=== PATIENT | female | born 1985 | race Caucasian/White ===

== ENCOUNTER 2017-10-11 17:41 | Emergency (ER) | payer OTHER ==
[~2017-10-11] VITALS: Ht 165.1 cm; Wt 81.7 kg
[2017-10-11] MEDS ORDERED: BUTALB-ACETAMI1 EAC3 PO (18:53)
== END 2017-10-11 20:13 | disposition home or self-care (01) ==
LOC: ED 17:41
DX: G43.909 Migraine, unspecified, not intractable, without status migrainosus (principal); J45.909 Unspecified asthma, uncomplicated; F17.200 Nicotine dependence, unspecified, uncomplicated; Z88.6 Allergy status to analgesic agent; Z88.8 Allergy status to other drugs, medicaments and biological substances
CPT/HCPCS: 96361; 96374; 96375; 99283; J1100; J1110; J1200; J2765; J7030

== ENCOUNTER 2018-07-30 13:34 | Emergency (ER) | payer OTHER ==
[~2018-07-30] VITALS: Ht 165.1 cm; Wt 79.4 kg
--- OUTSIDE RECORDS SUMMARY | ~2018-07-30 | XMS | Encounter Summary ---
Demographics + + + | Address | [address] [facility] [address] | | | [place] [address] | + + + | Home Phone | | + + + | Preferred Language | Unknown | + + + | Marital Status | | + + + | Mosque Affiliation | 1013 | + + + | Race | Unknown | + + + | Ethnic Group | Unknown | + + + Author + + + | Author | [facility] | | | and [place] | + + + | Organization | [facility] | | | and [place] | + + + | Address | Unknown | + + + | Phone | Unavailable | + + + Support + + + + + | Name | Relationship | Address | Phone | + + + + + | Doroteo Goff | ECON | [address] | | | | | [place] | | | | | [address] | | + + + + + Care Team Providers + +------+ + | Care Mushroom Grower Name | Role | Phone | + +------+ + | Tayler Pollard | PCP | | + +------+ + Reason for Visit +---------+ + | Reason | Comments | +---------+ + | Results | | +---------+ + Encounter Details +--------+ + + + + | Date | Type | Department | Care Team | Description | +--------+ + + + + | 05/28/ | Telephone | [facility] | Mery, | Results | | 2019 | | HOSPITAL NEUROLOGY | [place], [address] | | | | | [address] | [address] [facility], | | | | | [address] [place], | [place] [address] | | | | | [place] [address] | [phone] | | | | | [phone] | | | +--------+ + + + + Social History + +-------+ +--------+------+ | Tobacco Use | Types | Packs/Day | Years | Date | | | | | Used | | + +-------+ +--------+------+ | Current Every Day | | 0.5 | | | | Smoker | | | | | + +-------+ +--------+------+ + +---+---+---+ | Smokeless Tobacco: | | | | | Never Used | | | | + +---+---+---+ + + +---------+ + | Alcohol Use | Drinks/We | oz/Week | Comments | | | ek | | | + + +---------+ + | No | | | | + + +---------+ + + + + | Sex Assigned at | Date Recorded | | | | + + + | Not on file | | + + + + + + + | Job Start Date | Occupation | Industry | + + + + | Not on file | Not on file | Not on file | + + + + + + + + | Travel History | Travel Start | Travel End | + + + + + + | No recent travel history available. | + + documented as of this encounter Plan of Treatment +--------+---------+ + + + | Date | Type | Specialty | Care Team | Description | +--------+---------+ + + + | 08/30/ | Office | Orthopedic Surgery | Kane Isaac | | | 2018 | Visit | | [address] | | | | | | [address] | | | | | | [place] [address] | | | | | | [phone] | | | | | | | | +--------+---------+ + + + | 09/13/ | Office | Neurology | Mery, | | | 2019 | Visit | | [address] | | | | | | [address] [place], | | | | | | [place] [address] | | | | | | [phone] | | | | | | | | +--------+---------+ + + + documented as of this encounter Visit Diagnoses Not on filedocumented in this encounter"
--- OUTSIDE RECORDS SUMMARY | ~2018-07-30 | XMS | Encounter Summary ---
Demographics + + + | Address | [address] [facility] [address] | | | [place] [address] | + + + | Home Phone | | + + + | Preferred Language | Unknown | + + + | Marital Status | | + + + | Advent Affiliation | 1013 | + + + | Race | Unknown | + + + | Ethnic Group | Unknown | + + + Author + + + | Author | [facility] | | | and [place] | + + + | Organization | [facility] | | | [...] [place] | | | | | [address] | | + + + + + Care Team Providers + +------+ + | Care Awake Overnight Monitor Name | Role | Phone | + +------+ + | Tayler Pollard | PCP | | + +------+ + Encounter Details +--------+ + + + + | Date | Type | Department | Care Team | Description | +--------+ + + + + | 05/03/ | Matty Only | [facility] | Romero Hodges MD | Intractable migraine | | 2019 | | HOSPITAL NEUROLOGY | [address] | without aura and | | | | CL[address] | [place] | without status | | | | [address] [place], | [address] | migrainosus (Primary | | | | [place] [address] | | Dx) | | | | [phone] | | | +--------+ + + + [...] | | | | | [place] [address] | | | | | | [phone] | | | | | | | | +--------+---------+ + + + | 09/13/ | Office | Neurology | Mery, | | | 2018 | Visit | | [address] | | | | | | [facility] | | | | | | [place] [address] | | | | | | [phone] | | | | | | | | +--------+---------+ + + + documented as of this encounter Visit Diagnoses + + | Diagnosis | + + | Intractable migraine without aura and without status migrainosus - Primary Migraine | | without aura, with intractable migraine, so stated, without mention of status | | migrainosus | + + documented in this encounter"
--- OUTSIDE RECORDS SUMMARY | ~2018-07-30 | XMS | Encounter Summary ---
Demographics + + + | Address | [address] [facility] [address] | | | [place] [address] | + + + | Home Phone | | + + + | Preferred Language | Unknown | + + + | Marital Status | | + + + | Rastafarian Affiliation | 1013 | + + + | Race | Unknown | + + + | Ethnic Group | Unknown | + + + Author + + + | Author | [facility] | | | and [place] | + + + | Organization | [facility] | | | [...] [place] | | | | | [address] | | + + + + + Care Team Providers + +------+ + | Care Veneer Trimmer Name | Role | Phone | + +------+ + | Tayler Pollard | PCP | | + +------+ + Encounter Details +--------+ + + + + | Date | Type | Department | Care Team | Description | +--------+ + + + + | 05/07/ | Orders Only | [facility] | Romero Hodges MD | Medication refill | | 2019 | | HOSPITAL NEUROLOGY | [address] | (Primary Dx) | | | | CLIN[address] | [place], [place] | | | | | [address] [place] [place], | [address] | | | | | [place] [address] | | | | | | [phone] | | | +--------+ + + + [...] [address] | | | | | | [address] | | | | | | [place] [address] | | | | | | [phone] | | | | | | | | +--------+---------+ + + + | 09/13/ | Office | Neurology | Mery, | | | 2019 | Visit | | [address] | | | | | | [address] [place], | | | | | | [place] [address] | | | | | | [phone] | | | | | | | | +--------+---------+ + + + documented as of this encounter Visit Diagnoses + + | Diagnosis | + + | Medication refill - Primary Issue of repeat prescriptions | + + documented in this encounter"
--- OUTSIDE RECORDS SUMMARY | ~2018-07-30 | XMS | Encounter Summary ---
Demographics + + + | Address | [address] [facility] [address] | | | [place] [address] | + + + | Home Phone | | + + + | Preferred Language | Unknown | + + + | Marital Status | | + + + | Mormon Affiliation | 1013 | + + + | Race | Unknown | + + + | Ethnic Group | Unknown | + + + Author + + + | Author | [facility] | | | and [place] | + + + | Organization | [facility] | | | and [...] [place] | | | | | [address] | | + + + + + Care Team Providers + +------+ + | Care Branch Service Associate Name | Role | Phone | + +------+ + | Tayler Pollard | PCP | | + +------+ + Reason for Visit + + + | Reason | Comments | + + + | Medication Refill | | + + + Encounter Details +--------+ + + + + | Date | Type | Department | Care Team | Description | +--------+ + + + + | 05/03/ | Telephone | [facility] | Romero Hodges MD | Medication Refill | | 2019 | | HOSPITAL NEUROLOGY | [address] | | | | | CL[address] | [place] | | | | | [address] [place], | [address] | | | | | [place] [address] | | | | | | [phone] | | | +--------+ + + + [...] Surgery | Kane Isaac | | | 2019 | Visit | | [address] | | | | | | [address] | | | | | | [place] [address] | | | | | | [phone] | | | | | | | | +--------+---------+ + + + | 09/13/ | Office | Neurology | Mery, | | | 2019 | Visit | | [address] | | | | | | [address] [place], | | | | | | [place] [address] | | | | | | [phone] | | | | | | | | +--------+---------+ + + + documented as of this encounter Visit Diagnoses Not on filedocumented in this encounter"
--- OUTSIDE RECORDS SUMMARY | ~2018-07-30 | XMS | Encounter Summary ---
Demographics + + + | Address | [address] [facility] [address] | | | [place] [address] | + + + | Home Phone | | + + + | Preferred Language | Unknown | + + + | Marital Status | | + + + | Latter-Day Affiliation | 1013 | + + + | Race | Unknown | + + + | Ethnic Group | Unknown | + + + Author + + + | Author | [facility] | | | and [place] | + + + | Organization | [facility] | | | and [...] [place] | | | | | [address] | | + + + + + Care Team Providers + +------+ + | Care Manager Books Name | Role | Phone | + [...] | [address] [place], | [address] | migrainosus (Primary | | | | [place] [address] | | Dx) | | | | [phone] | | | +--------+ + + + [...] | | | | | [place] [address] | | | | | | [phone] | | | | | | | | +--------+---------+ + + + | 09/13/ | Office | Neurology | Mery, | | | 2018 | Visit | | [address] | | | | | | [facility], | | | | | | [place] [address] | | | | | | [phone] | | | | | | | [...]
--- OUTSIDE RECORDS SUMMARY | ~2018-07-30 | XMS | Encounter Summary ---
Demographics + + + | Address | [address] [facility] [address] | | | [place] [address] | + + + | Home Phone | | + + + | Preferred Language | Unknown | + + + | Marital Status | | + + + | Yazidi Affiliation | 1013 | + + + | Race | Unknown | + + + | Ethnic Group | Unknown | + + + Author + + + | Author | [facility] | | | and [place] | + + + | Organization | [facility] | | | [...] [place] | | | | | [address] | | + + + + + Care Team Providers + +------+ + | Care Data Modeling Specialist Name | Role | Phone | + +------+ + | Tayler Pollard | PCP | | + +------+ + Reason for Visit + + + | Reason | Comments | + + + | Medication Question | | + + + Encounter Details +--------+ + + + + | Date | Type | Department | Care Team | Description | +--------+ + + + + | 05/07/ | Telephone | [facility] | Romero Hodges MD | Medication Question | | 2019 | | HOSPITAL NEUROLOGY | [address] | | | | | CL[address] | [place] | | | | | [address] [place], | [address] | | | | | [place] [address] | | | | | | [phone] | | | +--------+ + + + [...] [address] | | | | | | [place] [address] | | | | | | [phone] | | | | | | | | +--------+---------+ + + + | 09/13/ | Office | Neurology | Mery, | | | 2019 | Visit | | [address] | | | | | | [address] [place], | | | | | | [place] [address] | | | | | | [phone] | | | | | | | | +--------+---------+ + + + documented as of this encounter Visit Diagnoses Not on filedocumented in this encounter"
--- OUTSIDE RECORDS SUMMARY | ~2018-07-30 | XMS | Encounter Summary ---
Demographics + + + | Address | [address] [facility] [address] | | | [place] [address] | + + + | Home Phone | | + + + | Preferred Language | Unknown | + + + | Marital Status | | + + + | Congregational Affiliation | 1013 | + + + | Race | Unknown | + + + | Ethnic Group | Unknown | + + + Author + + + | Author | [facility] | | | and [place] | + + + | Organization | [facility] | | | and [...] [place] | | | | | [address] | | + + + + + Care Team Providers + +------+ + | Care Nursing Scheduler Name | Role | Phone | + +------+ + | Tayler Pollard | PCP | | + +------+ + Encounter Details +--------+ + + + + | Date | Type | Department | Care Team | Description | +--------+ + + + + | 05/11/ | Hospital | [facility] | Romero Hodges MD | Intractable migraine | | 2019 | Encounter | HOSPITAL RESPIRATORY | [address] | with aura without | | | | THERAPY [address] | [place] | status migrainosus; | | | | [place] | [address] | Dizziness | | | | [address] | | | | | | [phone] | | | +--------+ + + + [...] + + documented as of this encounter Medications at Time of Discharge + + + +---------+ + + | Medication | Sig | Dispensed | Refills | Start | End Date | | | | | | Date | | + + + +---------+ + + | albuterol 90 | Inhale 2 puffs into | | 0 | 01/30/20 | | | mcg/puff inhaler | the lungs. | | | 17 | | + + + +---------+ + + | albuterol 90 | Inhale 2 puffs into | | 0 | 05/02/19 | | | mcg/puff inhaler | the lungs. | | | 17 | | + + + +---------+ + + | | Take 1 capsule by | | 0 | 01/07/20 | | | butalbital-acetamino | mouth. | | | 17 | | | lcdr-xmkkvodn-gfzvul | | | | | | | e (FIORICET WITH | | | | | | | CODEINE) | | | | | | | [id number] MG per | | | | | | | capsule | | | | | | + + + +---------+ + + | ibuprofen | Take 800 mg by | | 0 | 12/27/19 | | | (ADVIL,MOTRIN) 800 | mouth. | | | 17 | | | MG tablet | | | | | | + + + +---------+ + + | | Inject under the | | 0 | | | | MedroxyPROGESTERone | skin. | | | | | | Acetate (DEPO-SUBQ | | | | | | | PROVERA 104 SC) | | | | | | + + + +---------+ + + | traMADol (ULTRAM) | | | 0 | 09/29/19 | | | 50 mg tablet | | | | 18 | | + + + +---------+ + + | ZOLMitriptan | 1 tablet the onset | 20 | 4 | 05/07/19 | | | (ZOMIG-ZMT) 5 MG | of migraine | tablet | | 19 | | | disintegrating | headaches, can | | | | | | tablet | repeat in 45 minutes | | | | | | | up to 2 per day | | | | | + + + +---------+ + + | zonisamide | One cap at bedtime | 60 | 4 | 05/07/19 | | | (ZONEGRAN) 50 MG | for one week, if | capsule | | 19 | 9 | | capsule | tolerated, increase | | | | | | | 2 caps at bedtime | | | | | + + + +---------+ + + documented as of this encounter Progress Notes Saw Cervantes RRT - 05/11/2018 1415 PSTAwake and drowsy EEG performed, patient tolerated study well. documented i n this encounter Plan of Treatment +--------+---------+ + + + | Date | Type | Specialty | Care Team | Description | +--------+---------+ + + + | 08/30/ | Office | Orthopedic Surgery | Kane Isaac | | 2018 | Visit | | [address] | | | | | | [address] | | | | | | [place] [address] | | | | | | [phone] | | | | | | | | +--------+---------+ + + + | 09/13/ | Office | Neurology | Mery, | | | 2019 | Visit | | [place], [employer] DEVEL[address] | | | | | | [address] [place], | | | | | | [place] [address] | | | | | | [phone] | | | | | | | | +--------+---------+ + + + documented as of this encounter Procedures + +--------+ + + + | Procedure Name | Priori | Date/Time | Associated Diagnosis | Comments | | | ty | | | | + +--------+ + + + | EEG | Routin | 05/11/2018 | Intractable | Results for this | | | e | 18:26 PST | migraine with aura | procedure are in the | | | | | without status | results section. | | | | | migrainosus | | | | | | Dizziness | | + +--------+ + + + documented in this encounter Results EEG (05/11/2018 18:26 PST) + + + | Narrative | Performed At | + + + | Sho Yun MD 05/11/2018 18:28 Name:Kenny Lara | | | Anil :1985 DATE OF SERVICE:05/11/2018 | | | STUDY: ELECTROENCEPHALOGRAM INTRODUCTION: This is a | | | digital EEG recording with a record length of 20 minutes. The | | | patient is a 32 y.o. year-old female with intractable headaches. | | | BACKGROUND RHYTHM: The patient has a well defined background | | | pattern of 10 Hz. This activity is more prominent posteriorly, | | | symmetrical, and synchronous. It attenuates with eye opening and | | | returns with eye closing. Drowsiness is appreciated by the | | | attenuation and slowing of the patient's background activities. | | | The patient was also noted to go into stage N2 sleep, as evidenced | | | by the appearance of sleep spindles. ABNORMAL POTENTIALS: No | | | focal slow waves or epileptiform discharges are seen. | | | HYPERVENTILATION/PHOTIC STIMULATION: Hyperventilation and photic | | | stimulation were without significant effect. | | | IMPRESSION: Normal awake and sleep EEG. Thank you for the | | | opportunity to participate in the care of this patient. | | | Sho Yun MD05/11/201818:26 Electronically signed | | + + + documented in this encounter Visit Diagnoses + + | Diagnosis | + + | Intractable migraine with aura without status migrainosus Migraine with aura, with | | intractable migraine, so stated, without mention of status migrainosus | + + | Dizziness Dizziness and giddiness | + + documented in this encounter"
--- OUTSIDE RECORDS SUMMARY | ~2018-07-30 | XMS | Encounter Summary ---
Demographics + + + | Address | [address] [facility] [address] | | | [place] [address] | + + + | Home Phone | | + + + | Preferred Language | Unknown | + + + | Marital Status | | + + + | Amish Affiliation | 1013 | + + + | Race | Unknown | + + + | Ethnic Group | Unknown | + + + Author + + + | Author | [facility] | | | and [place] | + + + | Organization | [facility] | | | [...] [place] | | | | | [address] | | + + + + + Care Team Providers + +------+ + | Care Operational Review Sergeant Name | Role | Phone | + +------+ + | Tayler Pollard | PCP | | + +------+ + Reason for Visit + + + | Reason | Comments | + + + | Headache (Adult - | | | Recurrent Or Known | | | Dx Migraines) | | + + + Encounter Details +--------+ + + + + | Date | Type | Department | Care Team | Description | +--------+ + + + + | 07/02/ | Telephone | [facility] | Romero Hodges MD | Headache (Adult - | | 2019 | | HOSPITAL NEUROLOGY | [address] | Recurrent Or Known | | | | CLINIC [address] | [place] | Dx Migraines) | | | | [address] [place] [place], | [address] | | | | | [place] [address] | | | | | | [phone] | | | +--------+ + + + [...] | | | | | [place] [address] | | | | | | [phone] | | | | | | | | +--------+---------+ + + + | 09/13/ | Office | Neurology | Mery, | | | 2018 | Visit | | [address] | | | | | | [address] [place], | | | | | | [place] [address] | | | | | | [phone] | | | | | | | | +--------+---------+ + + + documented as of this encounter Visit Diagnoses + + | Diagnosis | + + | Migraine without aura and without status migrainosus, not intractable - Primary | | Migraine without aura, without mention of intractable migraine without mention of status | | migrainosus | + + documented in this encounter"
--- OUTSIDE RECORDS SUMMARY | ~2018-07-30 | XMS | Clinical Summary ---
Demographics + + + | Address | [address] [facility] [address] | | | [place] [address] | + + + | Home Phone | | + + + | Preferred Language | Unknown | + + + | Marital Status | | + + + | Judaism Affiliation | 1013 | + + + | Race | Unknown | + + + | Ethnic Group | Unknown | + + + Author + + + | Author | [facility] | | | and [place] | + + + | Organization | [facility] | | | [...] [place] | | | | | [address] | | + + + + + Care Team Providers + +------+ + | Care Line Locator Name | Role | Phone | + +------+ + | Tayler oPllard | PP | | + +------+ + Allergies + + + + + + | Active Allergy | Reactions | Severity | Noted | Comments | | | | | Date | | + + + + + + | Ketorolac | Swelling | Medium | 04/23/19 | | | | | | 15 | | + + + + + + | Ondansetron | Swelling | Medium | /21/20 | | | | | | 15 | | + + + + + + Medications + + + +---------+------+------+-------+ | Medication | Sig | Dispensed | Refills | Star | End | Statu | | | | | | t | Date | s | | | | | | Date | | | + + + +---------+------+------+-------+ | albuterol 90 | Inhale 2 puffs into | | 0 | 01/3 | | Activ | | mcg/puff inhaler | the lungs. | | | 0/20 | | e | | | | | | 17 | | | + + + +---------+------+------+-------+ | | Take 1 capsule by | | 0 | 10/0 | | Activ | | butalbital-acetamino | mouth. | | | 6/20 | | e | | ztcl-oidhaxom-aujiib | | | | 17 | | | | e (FIORICET WITH | | | | | | | | CODEINE) | | | | | | | | [phone] MG per | | | | | | | | capsule | | | | | | | + + + +---------+------+------+-------+ | ibuprofen | Take 800 mg by | | 0 | 09/2 | | Activ | | (ADVIL,MOTRIN) 800 | mouth. | | | 5/20 | | e | | MG tablet | | | | 17 | | | + + + +---------+------+------+-------+ | traMADol (ULTRAM) | | | 0 | 06/2 | | Activ | | 50 mg tablet | | | | 8/20 | | e | | | | | | 18 | | | + + + +---------+------+------+-------+ | | Inject under the | | 0 | | | Activ | | MedroxyPROGESTERone | skin. | | | | | e | | Acetate (DEPO-SUBQ | | | | | | | | PROVERA 104 SC) | | | | | | | + + + +---------+------+------+-------+ | ZOLMitriptan | 1 tablet the onset | 20 | 4 | 02/0 | | Activ | | (ZOMIG-ZMT) 5 MG | of migraine | tablet | | 4/20 | | e | | disintegrating | headaches, can | | | 19 | | | | tablet | repeat in 45 minutes | | | | | | | | up to 2 per day | | | | | | + + + +---------+------+------+-------+ | zonisamide | Take 1 capsule by | 120 | 4 | 04/0 | 05/0 | Activ | | (ZONEGRAN) 50 MG | mouth every evening | capsule | | 1/20 | 1/20 | e | | capsule | for 30 days. 4 caps | | | 19 | 19 | | | | at bedtime | | | | | | + + + +---------+------+------+-------+ | albuterol 90 | Inhale 2 puffs into | | 0 | 01/3 | | Activ | | mcg/puff inhaler | the lungs. | | | 0/20 | | e | | | | | | 17 | | | + + + +---------+------+------+-------+ | zonisamide | One cap at bedtime | 60 | 4 | 02/0 | 04/0 | Disco | | (ZONEGRAN) 50 MG | for one week, if | capsule | | 4/20 | 1/20 | ntinu | | capsule | tolerated, increase | | | 19 | 19 | ed | | | 2 caps at bedtime | | | | | | + + + +---------+------+------+-------+ Active Problems + + + | Problem | Noted Date | + + + | Neck pain, bilateral | 05/02/2018 | + + + | Bilateral carpal tunnel syndrome | 05/02/2018 | + + + | Muscle spasm | 01/01/2015 | + + + | Migraine headache | 04/23/2014 | + + + Encounters +--------+ + + + + | Date | Type | Specialty | Care Team | Description | +--------+ + + + + | 07/14/ | Procedure | | Romero Hodges MD | Bilateral carpal | | 2018 | visit | | | tunnel syndrome | +--------+ + + + + | 07/02/ | Telephone | | Romero Hodges MD | Headache (Adult - | | 2018 | | | | Recurrent Or Known | | | | | | Dx Migraines) | +--------+ + + + + | 06/20/ | Documentati | | Carmen Villegas RN | | | 2018 | on | | | | +--------+ + + + + | 05/28/ | Telephone | | Mery, | Results | | 2018 | | | [place] | | +--------+ + + + + | 05/25/ | Telephone | | Mery, | Results | | 2018 | | | [place] | | +--------+ + + + + | 05/11/ | Hospital | | Romero Hodges MD | Intractable migraine | | 2019 | Encounter | | | with aura without | | | | | | status migrainosus; | | | | | | Dizziness | +--------+ + + + + | 05/07/ | Orders Only | | Romero Hodges MD | Medication refill | | 2018 | | | | (Primary Dx) | +--------+ + + + + | 05/07/ | Orders Only | | Romero Hodges MD | Intractable migraine | | 2018 | | | | without aura and | | | | | | without status | | | | | | migrainosus (Primary | | | | | | Dx) | +--------+ + + + + | 05/07/ | Telephone | | Romero Hodges MD | Medication Question | | 2018 | | | | | +--------+ + + + + | 05/03/ | Orders Only | | Romero Hodges MD | Intractable migraine | | 2018 | | | | without aura and | | | | | | without status | | | | | | migrainosus (Primary | | | | | | Dx) | +--------+ + + + + | 05/03/ | Telephone | | Romero Hodges MD | Medication Refill | | 2018 | | | | | +--------+ + + + + | 05/02/ | Office | | Romero Hodges MD | Intractable migraine | | 2018 | Visit | | | with aura without | | | | | | status migrainosus | | | | | | (Primary Dx); | | | | | | Dizziness; Bilateral | | | | | | carpal tunnel | | | | | | syndrome; Neck pain, | | | | | | bilateral; Muscle | | | | | | spasm | +--------+ + + + + from Last 3 Months Family History + + +------+ + | Medical History | Relation | Name | Comments | + + +------+ + | Other (see comment) | Father | | | + + +------+ + | Migraines | Mother | | | + + +------+ + + +------+ + + | Relation | Name | Status | Comments | + +------+ + + | Brother | | Alive | | + +------+ + + | Father | | | | + +------+ + + | Mother | | Alive | | + +------+ + + Social History + +-------+ +--------+------+ [...] recent travel history available. | + + Last Filed Vital Signs + + + + | Vital Sign | Reading | Time Taken | + + + + | Blood Pressure | 127/79 | 07/14/2018 105 PDT | + + + + | Pulse | 80 | 07/14/2018 105 PDT | + + + + | Temperature | - | - | + + + + | Respiratory Rate | 18 | 07/14/20181050 PDT | + + + + | Oxygen Saturation | 99% | 07/14/20181050 PDT | + + + + | Inhaled Oxygen | - | - | | Concentration | | | + + + + | Weight | 82.6 kg (182 lb) | 07/14/20181050 PDT | + + + + | Height | 165.1 cm (5' 5") | 07/14/20181050 PDT | + + + + | Body Mass Index | 30.29 | 07/14/2018 1051 PDT | + + + + Plan of Treatment +--------+---------+ + + + | Date | Type | Specialty | Care Team | Description | +--------+---------+ + + + | 08/30/ | Office | | Kane Isaac | | | 2018 | Visit | | [address] | | | | | | [place] | | | | | | [place] [address] | | | | | | [phone] | | | | | | | | +--------+---------+ + + + | 09/13/ | Office | | Mery, | | | 2018 | Visit | | [place] [address] | [address] [place], | | | | | | [place] [address] | | | | | | [phone] | | | | | | | | +--------+---------+ + + + + + + + + | Health Maintenance | Due Date | Last Done | Comments | + + + + + | Vaccine: | | | | | Dtap/Tdap/Td (1 - | 3 | | | | Tdap) | | | | + + + + + | Vaccine: | | | | | Pneumococcal 19-64 | 3 | | | | (PPSV23 only) Medium | | | | | Risk (1 of 1 - | | | | | PPSV23) | | | | + + + + + | Cervical Cancer | | | | | Screening (Pap) | 4 | | | + + + + + | Vaccine: Influenza | | | | | (Season Ended) | 9 | | | + + + + + Procedures + +--------+ + + + | Procedure Name | Priori | Date/Time | Associated Diagnosis | Comments | | | ty | | | | + +--------+ + + + | EMG STUDY | Routin | 07/14/2018 | Bilateral carpal | Results for this | | | e | 11:15 PDT | tunnel syndrome | procedure are in the | | | | | | results section. | + +--------+ + + + | IMAGING REPORT - | | 07/10/2018 | | Results for this | | EXTERNAL SCAN | | 0:00 PDT | | procedure are in the | | | | | | results section. | + +--------+ + + + | IMAGING REPORT - | | 06/21/2018 | | Results for this | | EXTERNAL SCAN | | 0:00 PDT | | procedure are in the | | | | | | results section. | + +--------+ + + + | [...] | | + +--------+ + + + from Last 3 Months Results EMG Study- Upper Extremity (07/14/2018 11:15 PDT) + + + | Narrative | Performed At | + + + | Rahul Hanna MD 07/14/2018 11:28See canned chart: NCS/EMG of there upper | | | extremities demonstrated mild bilateral median nerv entrapment across | | | the wrists. | | + + + + + | Procedure Note | + + | Romero Hogdes MD - 07/14/2018 1115 PDT See canned chart: NCS/EMG of there upper | | extremities demonstrated mild bilateral median nerv entrapment across the wrists. | + + IMAGING REPORT - EXTERNAL SCAN (07/10/2018 0:00 PDT)Only the most recent of 2 results with in the time period is included. + + + | Narrative | Performed At | + + + | Ordered by an | | | unspecified provider. | | + + + EEG (05/11/2018 18:26 PST) + + + [...] Electronically signed | | + + + from Last 3 Months Insurance + +--------+ +--------+ +---------+--------+ | Payer | Benefi | Subscriber | Effect | Phone | Address | Type | | | t Plan | ID | lacie | | | | | | / | | Dates | | | | | | Group | | | | | | + +--------+ +--------+ +---------+--------+ | [employer] | [employer] | [id number] | | [phone] | | Medica | | MEDICAID HMO | HEALTH | | 019-Pr | 1 | | id | | | MDCD | | esent | | | | | | [place] | | | | | | + +--------+ +--------+ +---------+--------+ + +--------+ +--------+ + + | Guarantor Name | Accoun | Relation to | Date | Phone | Billing Address | | | t Type | Patient | of | | | | | | | | | | + +--------+ +--------+ + + | Kenny Ma | Person | Self [birth year] | [address] | | | [address] | | 1985 | [phone] | [place] | | | janessa | | | [address] ([place]) | [address] | + +--------+ +--------+ + + Advance Directives Patient has advance care planning documents on file. For more information, please contact:[facility] [place] [address]
--- OUTSIDE RECORDS SUMMARY | ~2018-07-30 | XMS | Encounter Summary ---
Demographics + + + | Address | [address] [facility] [address] | | | [place] [address] | + + + | Home Phone | | + + + | Preferred Language | Unknown | + + + | Marital Status | | + + + | Congregation Affiliation | 1013 | + + + [...] [place] | | | | | [address] | | + + + + + Care Team Providers + +------+ + | Care Compensation Programs Manager Name | Role | Phone | + +------+ + | Tayler Pollard | PCP | | + +------+ + Reason for Referral Evaluate & Treat (Routine) + + + + + + + | Status | Reason | Specialty | Diagnoses / | Referred By | Referred To | | | | | Procedures | Contact | Contact | + + + + + + + | Authorized | Specialty | Orthopedic | Diagnoses | Hodges, | Kane Isaac | | | Services | Surgery | Bilateral | Romero Ayon, | MD Joss | | | Required | | carpal | [address] | | | | | tunnel | [address], | [address] | | | | | syndrome | [place] | [place], [place] | | | | | Procedures | [place], [place] | [address] | | | | | [place] | [address] | Phone: | | | | | | Phone: | [phone] | | | | | | [phone] | Fax: | | | | | | Fax: | [phone] | | | | | | [phone] | | + + + + + + + Reason for Visit + + + | Reason | Comments | + + + | Procedure | EMG BUE | + + + Encounter Details +--------+ + + + + | Date | Type | Department | Care Team | Description | +--------+ + + + + | 07/14/ | Procedure | [facility] | Romero Hodges MD | Bilateral carpal | | 2019 | visit | [facility] | [address] [place] [address] | tunnel syndrome | | | | CLINIC [address] | [place], [place] | | | | | [address] [place], | [address] | | | | | [place] [address] | | | | | | [phone] | | | +--------+ + + + [...] + + documented as of this encounter Last Filed Vital Signs + + + + | Vital Sign | Reading | Time Taken | + + + + | Blood Pressure | 127/79 | 07/14/2018 105 PDT | + + + + | Pulse | 80 | 07/14/2018 1051 PDT | + + + + | [...] 1051 PDT | + + + + documented in this encounter Progress Notes Maury Patrick, [facility] - 07/14/2018 1115 PDTEMG-BUE, no complaints after procedure Electronically signed by: NICK Cervantes [facility] 07/14/2018 14:41 documented in this encoun ter Plan of Treatment +--------+---------+ + + + | Date | Type | Specialty | Care Team | Description | +--------+---------+ + + + | 08/30/ | Office | Orthopedic Surgery | Kane Isaac | | | 2018 | Visit | | [address] | | | | | | [address] | | | | | | [place] [address] | | | | | | [phone] | | | | | | | | +--------+---------+ + + + | 09/13/ | Office | Neurology | Mery, | | | 2018 | Visit | | [place] [address] | | [address] [place], | | | | | | [place] [address] | | | | | | [phone] | | | | | | | | +--------+---------+ + + + + +--------+ + + | Name | Priori | Associated Diagnoses | Order Schedule | | | ty | | | + +--------+ + + | * José [facility] | Routin | Bilateral carpal | Ordered: 07/14/2018 | | - AMB Referral | e | tunnel syndrome | | + +--------+ + + documented as of this encounter [...] section. | + +--------+ + + + documented in this encounter Visit Diagnoses + + | Diagnosis | + + | Bilateral carpal tunnel syndrome Carpal tunnel syndrome | + + documented in this encounter
--- OUTSIDE RECORDS SUMMARY | ~2018-07-30 | XMS | Encounter Summary ---
Demographics + + + | Address | [address] [facility] [address] | | | [place] [address] | + + + | Home Phone | | + + + | Preferred Language | Unknown | + + + | Marital Status | | + + + | Hoahaoism Affiliation | 1013 | + + + | Race | Unknown | + + + | Ethnic Group | Unknown | + + + Author + + + | Author | [facility] | | | and [place] | + + + | Organization | [facility] | | | and [...] [place] | | | | | [address] | | + + + + + Care Team Providers + +------+ + | Care Commercial Construction Project Manager Name | Role | Phone | + +------+ + | Tayler Pollard | PCP | | + +------+ + Encounter Details +--------+ + + + + | Date | Type | Department | Care Team | Description | +--------+ + + + + | 06/20/ | Documentati | [facility] | Carmen Villegas RN | | | 2019 | on | [facility] | | | | | | CLINIC [address] | | | | | | [address] [place], | | | | | | [place] [address] | | | | | | [phone] | | | +--------+ + + + [...] documented as of this encounter Progress Notes Carmen Villegas RN - 06/20/2018 1628 PDTCalled and left message to remind pt to schedule MR I Brain at [facility], apparently they do not call pt to schedule. Ordered on 05/02/18/Seng parrish RN documented in this encounter Plan of Treatment +--------+---------+ + + + | Date | Type | Specialty | Care Team | Description | +--------+---------+ + + + | 08/30/ | Office | Orthopedic Surgery | Kane Isaac | | | 2018 | Visit | | [address] | | | | | | [address] | | | | | | [place] [address] | | | | | | [phone] | | | | | | | | +--------+---------+ + + + | 09/13/ | Office | Neurology | Mery, | | | 2019 | Visit | | [place] [address] [place], | | | | | | [place] [address] | | | | | | [phone] | | | | | | | | +--------+---------+ + + + documented as of this encounter Visit Diagnoses Not on filedocumented in this encounter"
--- OUTSIDE RECORDS SUMMARY | ~2018-07-30 | XMS | Encounter Summary ---
Demographics + + + | Address | [address] [facility] [address] | | | [place] [address] | + + + | Home Phone | | + + + | Preferred Language | Unknown | + + + | Marital Status | | + + + | Yazidi Affiliation | 1013 | + + + | Race | Unknown | + + + | Ethnic Group | Unknown | + + + Author + + + | Author | [facility] | | | and [place] | + + + | Organization | [facility] | | | [...] [place] | | | | | [address] | | + + + + + Care Team Providers + +------+ + | Care Slasher Operator Name | Role | Phone | + [...] + + | 05/25/ | Telephone | [facility] | Mery, | Results | | 2019 | | [facility] | [place], [facility] [address] | | | | | CL[address] | [address] [facility], | | | | | [address] [place], | [place] [address] | | | | | [place] [address] | [phone] | | | | | [phone] | | | +--------+ + + + [...] | | | | | [place] [address] | | | | | | [phone] | | | | | | | | +--------+---------+ + + + | 09/13/ | Office | Neurology | Mery, | | | 2019 | Visit | | [place] [address] [place], | | | | | | [place] [address] | | | | | | [phone] | | | | | | | | +--------+---------+ + + + documented as of this encounter Visit Diagnoses Not on filedocumented in this encounter"
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
--- OUTSIDE RECORDS SUMMARY | ~2018-07-30 | XMS | Clinical Summary ---
Demographics + + + | Address | [address] | | | [address] | | | [place] [address] | + + + | Home Phone | | + + + | Preferred Language | Unknown | + + + | Marital Status | | + + + | Church Affiliation | 1013 | + + + | Race | Unknown | + + + | Ethnic Group | Unknown | + + + Author + + + | Author | [employer] | + + + | Organization | [facility] | + + + | Address | Unknown | + + + | Phone | Unavailable | + + + Support + + + + + | Name | Relationship | Address | Phone | + + + + + | Detailed,Message | ECON | [address] | | | | | [place] | | | | | [phone] | | + + + + + Care Team Providers + +------+ + | Care Blood Bank Technologist Name | Role | Phone | + +------+ + | Tayler Pollard PA-C | PP | | + +------+ + Allergies + + + + + + | Active Allergy | Reactions | Severity | Noted | Comments | | | | | Date | | + + + + + + | Ondansetron | Swelling | Medium | 04/23/19 | | | | | | 15 | | + + + + + + | Ketorolac | Swelling | Medium | 04/23/19 | | | | | | 15 | | + + + + + + Current Medications + + + +---------+------+------+-------+ | Prescription | Sig. | Disp. | Refills | Star | End | Statu | | | | | | t | Date | s | | | | | | Date | | | + + + +---------+------+------+-------+ | albuterol (PROAIR | Inhale 2 puffs into | 1 | 5 | 01/3 | | Activ | | HFA) 108 (90 BASE) | the lungs every 4 | Inhaler | | 0/20 | | e | | MCG/ACT | (four) hours as | | | 17 | | | | inhalerIndications: | needed for Wheezing. | | | | | | | Tobacco abuse, | | | | | | | | Medication | | | | | | | | management, Annual | | | | | | | | physical exam | | | | | | | + + + +---------+------+------+-------+ | Nebulizer (medical | Dispense and provide | 1 each | 0 | 08/1 | | Activ | | device)Indications: | instruction as | | | 7/20 | | e | | Bronchitis, | needed. | | | 17 | | | | Wheezing | | | | | | | + + + +---------+------+------+-------+ | budesonide | Take 2 mLs by | 120 mL | 1 | 08/1 | | Activ | | (PULMICORT) 1 MG/2ML | nebulization 2 (two) | | | 7/20 | | e | | nebulizer | times daily. | | | 17 | | | | solutionIndications: | | | | | | | | Bronchitis, | | | | | | | | Wheezing | | | | | | | + + + +---------+------+------+-------+ | ibuprofen (MOTRIN) | Take 1 tablet by | 90 | 0 | 09/2 | | Activ | | 800 MG tablet | mouth 3 (three) | tablet | | 5/20 | | e | | | times daily as | | | 17 | | | | | needed for Pain. | | | | | | + + + +---------+------+------+-------+ | | Take 1 capsule by | 15 | 0 | 10/0 | | Activ | | butalbital-acetamino | mouth every 4 (four) | capsule | | 6/20 | | e | | phen-caffeine | hours as needed for | | | 17 | | | | (FIORICET WITH | Headaches. | | | | | | | CODEINE) | | | | | | | | [id number] MG per | | | | | | | | capsule | | | | | | | + + + +---------+------+------+-------+ | verapamil | Take 1 capsule by | 30 | 3 | 08/2 | | Activ | | (VERELAN) 100 MG 24 | mouth nightly. | capsule | | 120 | | e | | hr | | | | 18 | | | | capsuleIndications: | | | | | | | | Intractable chronic | | | | | | | | migraine without | | | | | | | | aura and without | | | | | | | | status migrainosus | | | | | | | + + + +---------+------+------+-------+ | rizatriptan | Take 1 tablet by | 10 | 1 | 08/2 | 08/2 | Activ | | (MAXALT-CAR CHANGER) 5 MG | mouth as needed for | tablet | | 1/20 | 1/20 | e | | disintegrating | Migraine. May repeat | | | 18 | 19 | | | tabletIndications: | in 2 hours if | | | | | | | Intractable chronic | needed | | | | | | | migraine without | | | | | | | | aura and without | | | | | | | | status migrainosus | | | | | | | + + + +---------+------+------+-------+ | traMADol (ULTRAM) | | | | 06/2 | | Activ | | 50 MG tablet | | | | 8/20 | | e | | | | | | 18 | | | + + + +---------+------+------+-------+ + + +-------+ +------+------+-------+ | Hospital, Clinic, or | Ordered | Route | Frequency | Star | End | Statu | | Other Facility | Dose | | | t | Date | s | | Administered | | | | Date | | | | Medication | | | | | | | + + +-------+ +------+------+-------+ | | 3 mL | ID | Once | 08/2 | 08/2 | Activ | | lidocaine-EPINEPHrin | | | | /20 | 2/20 | e | | e 1 %-[id number] | | | | 18 | 38 | | | injection 3 | | | | | | | | mLIndications: | | | | | | | | Neoplasm of | | | | | | | | uncertain behavior | | | | | | | | of skin | | | | | | | + + +-------+ +------+------+-------+ Active Problems + + + | Problem | Noted Date | + + + | History of sterilization procedure | 12/03/2015 | + + + | Tobacco abuse | 01/20/2015 | + + + | Routine general medical examination at a health care facility | 01/01/2015 | + + + | Muscle spasm | 01/01/2015 | + + + | FHx: migraine headaches | 01/01/2015 | + + + | Migraine headache | 04/23/2014 | + + + Immunizations +------+ + + | Name | Dates Previously Given | Next Due | +------+ + + | Tdap | 08/03/2015 | | +------+ + + Family History + + +------+ + | Medical History | Relation | Name | Comments | + + +------+ + | Stroke | Maternal | | | | | Grandmoth | | | | | er | | | + + +------+ + | Fibromyalgia | Mother | | | + + +------+ + + +------+ + + | Relation | Name | Status | Comments | + +------+ + + | Brother | | Alive | | + +------+ + + | Daughter | | Alive | | + +------+ + + | Daughter | | Alive | | + +------+ + + | Father | | | | + +------+ + + | Maternal Grandmother | | | | + +------+ + + | Mother | | Alive | | + +------+ + + | Son | | Alive | | + +------+ + + Social History + +-------+ +--------+ + | Tobacco Use | Types | Packs/Day | Years | Date | | | | | Used | | + +-------+ +--------+ + | Former Smoker | | 0.5 | | Quit: 08/28/2017 | + +-------+ +--------+ + + +---+---+---+ | Smokeless Tobacco: | | | | | Never Used | | | | + +---+---+---+ + + | Tobacco Cessation: Ready to Quit: Yes; Counseling Given: Yes | + + + + +---------+ + | Alcohol Use | Drinks/We | oz/Week | Comments | | | ek | | | + + +---------+ + | No | 0 | 0.0 | | | | Standard | | | | | drinks or | | | | | | | | | | equivalen | | | | | t | | | + + +---------+ + + + + | Sex Assigned at | Date Recorded | | | | + + + | Not on file | | + + + Last Filed Vital Signs + + + + | Vital Sign | Reading | Time Taken | + + + + | Blood Pressure | 117/81 | 11/21/2017 10:49 AM PDT | + + + + | Pulse | 87 | 11/21/2017 10:49 AM PDT | + + + + | Temperature | 36.9 C (98.5 F) | 11/07/2016 10:46 PM PDT | + + + + | Respiratory Rate | 16 | 11/17/2016 2:17 PM PDT | + + + + | Oxygen Saturation | 97% | 11/21/2017 10:49 AM PDT | + + + + | Inhaled Oxygen | - | - | | Concentration | | | + + + + | Weight | 82.6 kg (182 lb) | 11/21/2017 10:49 AM PDT | + + + + | Height | 165.1 cm (5' 5") | 11/21/2017 10:49 AM PDT | + + + + | Body Mass Index | 30.29 | 11/21/2017 10:49 AM PDT | + + + + Plan of Treatment + + + + + | Health Maintenance | Due Date | Last Done | Comments | + + + + + | Vaccine: Influenza | | | | | (Season Ended) | 9 | | | + + + + + | Cervical Cancer | | 12/04/2015, 04/03/2014 | | | Screening (Pap) | 1 | (Received Elsewhere) | | + + + + + | Vaccine: | | 08/03/2015 | | | Dtap/Tdap/Td (2 - | 6 | | | | Td) | | | | + + + + + Results Not on filefrom Last 3 Months Insurance + +--------+ +------+-------+ + | Payer | Benefi | Subscriber | Type | Phone | Address | | | t Plan | ID | | | | | | / | | | | | | | Group | | | | | + +--------+ +------+-------+ + | MEDICAID | [place] | [id number] | | | [address] | | | [place] | | | | [place] | | | [place] | | | | [phone] | | | [place] | | | | | + +--------+ +------+-------+ + + +--------+ +--------+ + + | Guarantor Name | Accoun | Relation to | Date | Phone | Billing Address | | | t Type | Patient | of | | | | | | | | | | + +--------+ +--------+ + + | KENNY MA | Person | Self [birth year] Home: | [address] | | | al/Fam | | 1985 | +- | [place], [place] | | | janessa | | | [phone] | + +--------+ +--------+ + + | KENNY MA | Third | Self | [birth year] | Home: | [address] | | | [employer] | | 1985 | +- | [place], [place] | | | [place] | | | [phone] | | | ity | | | | | + +--------+ +--------+ + +
[~2018-07-30 13:34] MED LIST: BUTALB-ACETAMI1 EAC3 PO
[2018-07-30] MEDS ORDERED: ZONISAMIDE50 MG PO (13:44)
--- OUTSIDE RECORDS SUMMARY | 2018-07-30 13:52 | XMS ---
PreManage Notification: NACHO CROCKETT Security Dispatcher Clerk Events No recent Security Events currently on file CRITERIA MET - [facility] There are no care providers on record at this time. Pablo has no Care Guidelines for this patient. [place] VISIT COUNT (12 MO.) 2 [facility] TOTAL 2 NOTE: Visits indicate total known visits. ED/C VISIT TRACKING (12 MO.) 07/30/2018 13:34 [facility] [place] TYPE: Emergency COMPLAINT: - NECK PAIN 10/11/2017 17:[address] [facility] [place] TYPE: Emergency COMPLAINT: - MIGRAINE DIAGNOSES: - Migraine, unspecified, not intractable, without status migrainosus - Unspecified asthma, uncomplicated - Nicotine dependence, unspecified, uncomplicated - Headache - Allergy status to analgesic agent status - Allergy status to other drugs, medicaments and biological substances status INPATIENT VISIT TRACKING (12 MO.) No inpatient visits to display in this time frame [email or web address]
[2018-07-30] MEDS ORDERED: DIAZEPAM5 MG PO ×2 (16:09→16:27)
== END 2018-07-30 16:15 | disposition home or self-care (01) ==
LOC: ED 13:34
DX: M62.830 Muscle spasm of back (principal); G43.909 Migraine, unspecified, not intractable, without status migrainosus; J45.909 Unspecified asthma, uncomplicated; F17.200 Nicotine dependence, unspecified, uncomplicated; Z88.6 Allergy status to analgesic agent; Z88.8 Allergy status to other drugs, medicaments and biological substances; Z79.899 Other long term (current) drug therapy
CPT/HCPCS: 99283

== ENCOUNTER 2022-08-25 07:58 | Day surgery (SDC) | payer OTHER ==
[2022-08-18 10:47] VITALS: BP 126/88
[~2022-08-25] VITALS: Ht 165.1 cm; Wt 92.7 kg
[~2022-08-25 07:58] MED LIST changes: +DEPO-PROVE150 MG/11 IM; +DIAZEPAM5 MG PO; +HYDROCODON-ACE1 EAC8 PO; +METHOCARBAMOL750 MG PO; +PROMETHAZINE HC25 M1 PO; +ZONISAMIDE50 MG PO
[2022-08-25 08:33] VITALS: BP 142/87
--- NOTE | 2022-08-25 12:03 | NUR ---
08/25/22 1203 Sheets,Libby 1142 PT ARRIVED TO PACU ON 6L VIA MASK, PT STARTS TO WAKE AND IS REORIENTED TO PACU. 1145 O2 REMOVED AND PT RPEORTS PAIN 3/10 AND SMALL AMOUNT OF NAUSEA. PT EASILY FALLS BACK TO SLEEP, WITH SMALL AMOUNT OF SNORNING NOTED. 1159 PT O2 SAT 89% AND 2L NC PLACED, COOL AIR IN PLACE AND PT REPORTS "HELPING NAUSEA." O2 INCREASED TO MID 90S. 1201 PT SUCKING OF ICE CHIPS PER REQUEST.
[2022-08-25] MEDS ORDERED: HYDROCODON-ACE1 EA10 PO (12:10)
[2022-08-25] MEDS ORDERED: ACETAMINOPHEN500 MG PO (12:11)
[2022-08-25 12:45] VITALS: BP 124/78
--- NOTE | 2022-08-25 13:25 | NUR ---
LE 1240 PATIENT BACK TO ROOM 5. VITAL SIGNS COMPLETE. PATIENT IS DROWSY. BREATHING EQUAL AND UNLABORED. OXYGEN SATURATIONS ABOVE 90% WITH 2 LITERS AND TITRATED TO ROOM AIR. THIS RN IN ROOM TO MONITOR. PATIENT STATES PAIN IS A 3/10 AND TOLERABLE. PATIENT IS NAUSEATED. COLD WASH CLOTH AND BEAR HUGGER GIVEN. SURGICAL SITE CLEAN, DRY AND INTACT. IVF INFUSING. SCD'S ON. CALL LIGHT WITHIN REACH NO FUTHER NEEDS. NO QUESTIONS. LE 1300 PATIENT BREATHING EQUAL AND UNLABORED. OXYGEN SATURATIONS ABOVE 90% ON ROOM AIR. PATIENT STATES NAUSEA HAS IMPROVED. WATER AND PUDDING GIVEN. LE 1315 PATIENT STATES PAIN IS 4/10 AND DENIES WANTING ANY PAIN MEDICINE AT THIS TIME. CALL LIGHT WITHIN REACH NO FUTHER NEEDS. NO QUESTIONS.
[2022-08-25 13:36] VITALS: BP 116/69
--- NOTE | 2022-08-25 13:46 | NUR ---
LE 134 PATIENT AMBULATED TO THE RESTROOM. VOIDED 200 MLS. CLEAR AND YELLOW URINE. PATIENT BACK TO ROOM. TOLERATED IT WELL. CALL LIGHT WITHIN REACH NO FUTHER NEEDS. NO QUESTIONS AT THIS TIME.
--- NOTE | 2022-08-25 14:33 | NUR ---
1415 PATIENT HAS MET DISCHARGE CRITERIA. PATIENT DRESSED SELF AND TOLERATED IT WELL. DISCHARGE INSTRUCTIONS GIVEN AND UNDERSTOOD. NO QUESTIONS AT THIS TIME. PATIENT WAS WHEELED OUT OF FACILITY TO PRIVATE AUTO. IV D/C'D WNL. NO FUTHER NEEDS.
--- NOTE | 2022-08-26 13:28 | OR ---
[facility] [address] [place], [place] [address] Signed DATE OF OPERATION: 08/25/2022 SURGEON: July Alvarez MD PREOPERATIVE DIAGNOSES: 1. Persistent right nipple discharge. 2. Palpable mass right upper outer quadrant consistent with fibroadenoma. POSTOPERATIVE DIAGNOSES: 1. Persistent right nipple discharge. 2. Palpable mass right upper outer quadrant consistent with fibroadenoma. PROCEDURES: 1. Right lateral segmental subareolar breast excision corresponding to nipple discharge. 2. Right upper outer quadrant excisional breast biopsy (separate incision). ANESTHESIA: General LMA, Pradeep Crocker CRNA and local 20 mL of 0.25% Marcaine with epinephrine. INDICATION: This 36-year-old white woman is a patient of Dr. Cash. She has had persistent nipple discharge on the right side, easily reproduced with nipple manipulation. The fluid has been dark green and not bloody particularly. She underwent an ultrasound of the right breast on April 21, 2022, showing a mass 8 cm from the nipple areolar margin, considered 1.2 cm lesion consistent with calcifications related to a fibroadenoma. Benign cysts were identified as well. She has an uncertain family history regarding breast cancer. The area in question of breast exam in the office showed a palpable mass. Manipulation of the nipple-areolar complex allowed for egress of dark fluid from the nipple site located approximately at 10 o'clock in relation to the right areola. She is admitted to undergo two procedures today; this include subsegmental excision related to the nipple discharge most likely to identify intraductal papilloma as well as excision of right upper outer quadrant palpable breast mass which is tender and likely benign. She understands the risk of bleeding, infection, failure of diagnosis, missed diagnosis, missing of an offending lesion and other unforeseen complications. FINDINGS: Palpation in the preoperative area was more challenging to identify the actual site of concern for the patient. The area of discrete tenderness and mass like area was Electronically Signed By: JULY ALVAREZ MD 08/26/22 1328 PATIENT NAME: NACHO PLATA OPERATIVE REPORT DATE OF : 81 REPORT #: [id number] PHYSICIAN: JULY ALVAREZ MD PCP: AFTBA CASH (SILVIA) DO REPORT IS CONFIDENTIAL AND NOT TO BE RELEASED WITHOUT AUTHORIZATION [facility] [address] [place], [place] [address] Signed identified and on ultrasound intraoperatively confirmed likely to be the area in question. As regards to the right nipple, there was discharge and excision in the segmental way in the lateral aspect corresponding to the ductal system for which drainage was accomplished. There were multiple cystic areas in the breast parenchyma medially towards the areolar margin. There was no lesion that was palpated or seen that was suggestive of malignancy. However, the final pathology was pending of course. DESCRIPTION OF PROCEDURE: The patient was brought to the operating room and given a general LMA type anesthetic. Preoperative antibiotic Ancef was given. Sequential compression device stockings were used and heparin was subcutaneously administered. The area of presumed palpable mass in the upper outer aspect had been marked. Excision of subareolar breast tissue was undertaken 1st. The areolar margin was marked and while on tension, an incision was made extending from the 10 o'clock to the 8 o'clock position and the right areolar margin laterally. Dissection was carried through the dermis with electrocautery. Elevation of a nipple flap was undertaken and breast parenchyma was excised corresponding to the ductal area with discharge which was easily demonstrated on palpation. Excision was undertaken corresponding to the system for which drainage was noted. Specimen was marked with short stitch superiorly and long stitch laterally. Electrocautery was used for hemostasis. The parenchyma of the breast was reapproximated with interrupted 2-0 Vicryl in layers and a running subcuticular 3-0 Vicryl for the skin. A 10 mL of 0.25% Marcaine with epinephrine was injected locally for postoperative analgesic benefit. Attention was turned towards the upper outer aspect of the right breast. The area in question, though previously noted to be tender in the preop area and reasonably distinguishable from surrounding breast parenchyma was identified once again. The SonoSite ultrasound was used to affirm a lesion in question there. This did show the area likely corresponding to the offending lesion. A curvilinear incision was made over this area after insinuating a long needle to the site in question. Dissection was carried through the subcutaneous tissue and wide resection undertaken corresponding to the guidance of the needle itself. A generous segment of tissue was excised. There were fibrocystic changes in the breast parenchyma to a degree. Once hemostasis was assured with electrocautery, the wound was closed with interrupted 2-0 Vicryl and running subcuticular 3-0 Vicryl for the skin. Steri-Strips were applied to both sites as well as Acticoat dressings. She was ultimately allowed to emerge from anesthesia, extubated and taken to recovery room in good condition. CONCLUDING DIAGNOSES: 1. Right subareolar nipple discharge, most likely related to fibrocystic disease. No clinical evidence of malignancy; await pathology report to likely confirm intraductal papilloma. Electronically Signed By: JULY ALVAREZ MD 08/26/22 1328 PATIENT NAME: NACHO PLATA OPERATIVE REPORT DATE OF : [birth year] REPORT #: [id number] PHYSICIAN: JULY ALVAREZ MD PCP: AFTAB CASH) DO REPORT IS CONFIDENTIAL AND NOT TO BE RELEASED WITHOUT AUTHORIZATION [place] [address] [place], [place] [address] Signed 2. Thickened breast tissue in the upper outer quadrant, likely corresponding to benign disease. MD ROSS Loja/ISRAELL /[id number] cc: Aftab Cash DO Copies: FATAB CASH (SILVIA) ~ Electronically Signed By: JULY ALVAREZ MD 08/26/22 1328 PATIENT NAME: NACHO PLATA OPERATIVE REPORT DATE OF : [birth year] REPORT #: [id number] PHYSICIAN: JULY ALVAREZ MD PCP: AFTAB CASH) DO REPORT IS CONFIDENTIAL AND NOT TO BE RELEASED WITHOUT AUTHORIZATION
--- NOTE | 2022-08-30 15:27 | PATH ---
[facility] [address] [place], [place] [address] Signed SPECIMEN(S): A RIGHT SUBAREOLAR SEGMENTAL EXCISION SPECIMEN(S): B RIGHT BREAST UPPER OUTER QUADRANT SPECIMEN SOURCE: A. RIGHT SUBAREOLAR SEGMENTAL EXCISION B. RIGHT BREAST UPPER OUTER QUADRANT CLINICAL HISTORY: Right nipple discharge, lump right outer quadrant (short stitches superior, long stitches lateral). Excision of right breast mass, upper outer quadrant and circumareolar incision, lower outer aspect. Specimen Time to Fixation- 08/25/2022 10:48:00 AM FINAL PATHOLOGIC DIAGNOSIS: A. Right subareolar segmental excision: - Benign breast tissue with focal fibrocystic changes, duct hyperplasia of the usual-type, apocrine metaplasia and mild periductal chronic inflammation. - Microcalcifications present in benign breast tissue. B. Right breast, upper outer quadrant: - Benign breast tissue with focal fibroadenoma with microcalcifications. - Fibroadenoma present at the green inked (inferior) surgical margin. - Fibrocystic changes with apocrine metaplasia. - Microcalcifications present in benign breast tissue. COMMENT: As part of [facility] [facility]' Quality Improvement Program, this case was reviewed by another member of our pathology staff. JJOSS:DS:[facility]:C2NR MICROSCOPIC EXAMINATION: Histologic sections of all submitted blocks are examined by light microscopy. These findings, together with the gross examination, support the pathologic diagnosis. GROSS DESCRIPTION: A. The specimen, labeled and designated "[place], right subareolar segmental excision," is received in formalin and consists of a piece of yellow-flores, lobular fibroadipose tissue that measures 4.5 x 3.3 x 2.2 cm. Specimen weight 19 g. Specimen is oriented: Short stitch-superior, long stitch-lateral specimen is inked: Superior-blue, inferior-green, lateral-orange, medial-red, anterior-yellow, PATIENT NAME: NACHO PLATA PATHOLOGY DATE OF : [birth year] REPORT #: [id number] PHYSICIAN: IFEOMA PATHOLOGY PCP: AFTAB REYES (SILVIA) DO REPORT IS CONFIDENTIAL AND NOT TO BE RELEASED WITHOUT AUTHORIZATION [facility] [address] [place], [place] [address] Signed posterior-black. The specimen is serially sectioned from lateral to medial in ten slices. Sectioning through the specimen reveals [place]-flores, irregular shaped fibroadipose tissue. No discrete lesion is grossly identified. Fibrous tissue is approximately 60% of the specimen. Cassette Summary: (A1) Lateral margin, perpendicular section (A2) Fibrous tissue with superior inferior posterior and anterior margin (A3-A4) Additional sections of fibrous tissue (A5) Medial margin, perpendicular section Cold ischemic time: 2 minutes Approximate time in formalin: 11 hours and 40 minutes B. The specimen, labeled and designated "[place], right breast upper outer quadrant biopsy," is received in formalin and consists of one yellow-flores, lobulated fibroadipose tissue fragment that measures 4.5 x 4.2 x 4.0 cm. Specimen weight 45 g. Specimen is oriented: Short stitch-superior, long stitch-lateral. Specimen is inked: Superior-blue, inferior-green, lateral-orange, medial-red, anterior-yellow, posterior-black. The specimen is serially sectioned from lateral to medial into eleven slices. Upon sectioning, shows a well-defined, monterroso-flores lesion that measures 1.1 x 0.8 x 1.0 cm. The lesion is 0.2 cm from superior margin, 0.3 cm from anterior margin, 1.0 cm from posterior margin, 2.8 cm from inferior margin, 2.5 cm from lateral margin and 0.8 cm from medial margin. Sectioning through the lesion reveals a [place]-flores, gritty surface. The lesion is presented in slices 6-9. The remaining tissue is regular fibroadipose tissue. The fibrous tissue is approximately 30% of the specimen. Cassette Summary: (B1) Lateral margin, perpendicular sections (B2) Lesion with superior and inferior margin (B3) Inferior margin closest to the lesion (B4) Posterior margin closest to the lesion (B5-B7) Lesion additional sections (B8) Random fibrous tissue (B9) Medial margin, perpendicular section Cold ischemic time: 2 minutes Approximate time in formalin: 11 hours and 15 minutes JS (under the direct supervision of a pathologist) The Gross Description was prepared using a voice recognition system. The report was reviewed for accuracy; however, sound-alike word errors, addition and/or PATIENT NAME: NACHO PLATA PATHOLOGY DATE OF : [birth year] REPORT #: [id number] PHYSICIAN: IFEOMA PATHOLOGY PCP: AFTAB REYES (SILVIA) DO REPORT IS CONFIDENTIAL AND NOT TO BE RELEASED WITHOUT AUTHORIZATION [facility] [address] [place] [address] Signed deletions may occur. If there is any question about this report, please contact Client Services. PERFORMING LABORATORY: The technical component was performed by [facility], [address] [place] [id number] (CLIA# [id number]). Professional interpretation was performed by [facility], [address] [place] [address], [place] [address] (CLIA#: [id number]). Diagnostician: Ru Arredondo MD Pathologist Electronically Signed 08/30/2022 Copies: ~ PATIENT NAME: NACHO PLATA PATHOLOGY DATE OF : [birth year] REPORT #: [id number] PHYSICIAN: IFEOMA STEWART PCP: AFTAB REYES (SILVIA) DO REPORT IS CONFIDENTIAL AND NOT TO BE RELEASED WITHOUT AUTHORIZATION
== END 2022-08-25 14:15 | disposition home or self-care (01) ==
LOC: DS 07:58
PROVIDERS: ATTEND Surgery
PROC: 0HBT0ZZ Excision of Right Breast, Open Approach (ICD-10-PCS; principal; 2022-08-25 09:00)
DX: D24.1 Benign neoplasm of right breast (principal); N60.81 Other benign mammary dysplasias of right breast; N60.11 Diffuse cystic mastopathy of right breast; N61.0 Mastitis without abscess; E66.9 Obesity, unspecified; Z68.32 Body mass index [BMI] 32.0-32.9, adult
CPT/HCPCS: 00400; J0690; J1100; J1170; J1644; J1790; J2001; J2405; J2704; J3010; J7121

== ENCOUNTER 2023-08-01 08:53 | Day surgery (SDC) | payer OTHER ==
[~2023-08-01] VITALS: Ht 165.1 cm; Wt 89.0 kg
[~2023-08-01 08:53] MED LIST changes: +ACETAMINOPHEN500 MG PO; +ALPRAZOLAM1 MG PO; +CEFAZOLIN SODIUM 2 GM/20 ML SYR IV SCH; +DICLOFENAC SODI50 GM TOP; +HEParin SOD (PORCINE) 5,000 UNIT/0.5 ML SYR SUB-Q SCH; +HYDROCODON-ACE1 EA10 PO; +IBLOOD GLUCOSE TEST STRIP 1 EA TEST VI PRN; +LACTATED RINGER'S 1,000 ML IV SCH; +LIDOCAINE HCL 1% 5 ML SDV INJ ONE; +MECLIZINE HCL12.5 MG PO; +SODIUM CHLORIDE 0.9% 20 ML IV ONE; +VITAMIN D21250 MCG PO; +iopamidoL 30 ML VIAL ONE
[2023-08-01 09:37] VITALS: BP 119/85
[2023-08-01 09:38] LABS: BASOPHILS 1.3 % (0-2); EOSINOPHILS 10.6 % (0-6); HEMATOCRIT 42.1 % (35.0-50.0); LYMPHOCYTES 32.8 % (24-44); MCH 31.3 (27-36); MCHC 33.2 g/dl (30-36); MCV 94.2 fl (81-99); MONOCYTES 7.3 % (0-12); PLATELET COUNT 339 K/uL (140-440); RBC 4.47 M/ul (4.3-5.7); RDW 12.8 (10.5-15.0)
[2023-08-01 09:53] LABS: ALBUMIN 3.5 g/dL (3.4-5.0); BILIRUBIN, TOTAL 0.2 ng/dL (0.2-1.0); BUN/CREATININE RATIO 18.91 (6.0-28.6); CALCIUM 8.4 mg/dL (8.5-10.1); CREATININE, SERUM 0.74 mg/dL (0.55-1.02)
[2023-08-01] MEDS ORDERED: LIDOCAINE HCL 1% 30 ML SDV ONE (10:21)
[2023-08-01] MEDS ORDERED: MAGNESIUM SULFATE 1 GM/2 ML VIAL ONE (10:21)
[2023-08-01] MEDS ORDERED: SUGAMMADEX SODIUM 200 MG/2 ML ML ONE (10:21)
[2023-08-01] MEDS ORDERED: dexmedeTOMIDine HCl 200 MCG/2 ML VIAL ONE (10:21)
[2023-08-01] MEDS ORDERED: ACETAMINOPHEN 1,000 MG/100 ML VIAL ONE (10:21)
[2023-08-01] MEDS ORDERED: propofoL 200 MG/20 ML VIAL ONE (10:21)
[2023-08-01] MEDS ORDERED: DEXAMETHASONE SOD PHOS 4 MG/ML VIAL ONE (10:21)
[2023-08-01] MEDS ORDERED: ROCURONIUM BROMIDE 50 MG/5 ML SYR ONE ×2 (10:21→12:34)
[2023-08-01] MEDS ORDERED: KETAMINE in NS 50 MG/5 ML SYR ONE (10:22)
[2023-08-01] MEDS ORDERED: MIDAZOLAM HCL 2 MG/2 ML VIAL ONE (10:23)
[2023-08-01] MEDS ORDERED: NALOXONE HCL 0.4 MG SYR IV PRN ×2 (11:00→13:30)
[2023-08-01] MEDS ORDERED: PROCHLORPERAZINE EDISYLATE 10 MG/2 ML VIAL IV PRN (11:00)
[2023-08-01] MEDS ORDERED: droPERidol 5 MG/2 ML VIAL IV PRN ×2 (11:00→16:45)
[2023-08-01] MEDS ORDERED: MIDAZOLAM HCL 2 MG/2 ML VIAL IV PRN (11:00)
[2023-08-01] MEDS ORDERED: IBLOOD GLUCOSE TEST STRIP 1 EA TEST VI PRN (11:00)
[2023-08-01] MEDS ORDERED: HYDROmorphone HCL 1 MG/ML SYR IV PRN (11:00)
[2023-08-01] MEDS ORDERED: fentaNYL citrate 50 MCG/ML SDV IV PRN (11:00)
[2023-08-01] MEDS ORDERED: LACTATED RINGER'S 1,000 ML IV ONE (12:17)
[2023-08-01] MEDS ORDERED: MORPHINE SULFATE 1 MG/ML VIAL ONE (12:25)
[2023-08-01] MEDS ORDERED: iopamidoL 30 ML VIAL ONE (12:31)
--- NOTE | 2023-08-01 13:23 | NUR ---
08/01/23 1323 Sindy Lerma 1312 PT ARRIVES TO THE PACU. RESPIRATIONS EVEN AND UNLABORED. PT RECIEVING 6L VIA MASK. 1315 PT GRABBING AT FACE. PT MASK REMOVED AND OXYGEN TURNED OFF. FURROWED BROW NOTED. PT RATES PAIN 3/10 AND TOLERABLE AT THIS TIME. NO NAUSEA.
[2023-08-01] MEDS ORDERED: IBUPROFEN 600 MG TAB PO PRN (13:30)
[2023-08-01] MEDS ORDERED: OXYCODONE/APAP 7.5/325 TAB PO PRN (13:30)
[2023-08-01] MEDS ORDERED: ACETAMINOPHEN 500 MG TAB PO PRN (13:30)
[2023-08-01] MEDS ORDERED: ACETAMINOPHEN500 MG PO ×2 (13:33→13:34)
[2023-08-01] MEDS ORDERED: IBUPROFEN600 MG PO (13:34)
[2023-08-01] MEDS ORDERED: OXYCODON-ACETA1 EAC2 PO (13:34)
[2023-08-01 14:35] VITALS: BP 119/85
--- NOTE | 2023-08-01 14:43 | NUR ---
PATIENT BACK IN DAY SURGERY ROOM FROM PACU. PATIENT HAD EPISODE OF EMESIS DURING TRANSFER FROM PACU TO DAY SURGERY ROOM. PATIENT STATES NAUSEA BETTER NOW. REFILLED ICE WATER AND GIVEN SALTINE CRACKERS PER REQUEST. VS CHECKED. LAP SITES X 5 WITH SCANT AMOUNT OF OOZING. SCDs ON. IV SITE WNL. CALL LIGHT WITHIN REACH. REQUESTS PO PAIN MEDICATION AFTER EATING CRACKERS. REQUESTS PO PROMETHAZINE TO GO WITH PO PAIN MEDICATION. VERBAL ORDER RECEIVED FROM DR. ALVAREZ FOR PROMETHAZINE. AT BEDSIDE.
[2023-08-01] MEDS ORDERED: PROMETHAZINE HCL 25 MG TAB PO ONE (14:45)
[2023-08-01] MEDS ORDERED: OXYCODONE HCL 5 MG TAB PO ONE (15:30)
[2023-08-01 15:40] VITALS: BP 126/88
--- NOTE | 2023-08-01 15:52 | NUR ---
1520: SPOKE WITH DR. ALVAREZ REGARDING PATIENT REACHING 24 HOUR TYLENOL INDEX. PAIN MEDICATION SWITCHED TO OXYCODONE. 1527: PATIENT MEDICATED WITH PO OXYCODONE AND PROMETHAZINE. WITHIN A FEW MINUTES, PATIENT BECAME NAUSEAOUS AND VOMITED APPROXIMATELY 300 ML. 1535: THIS RN AND A SECOND RN SIFTED THROUGH EMESIS AND DID NOT LOCATE ANY PILLS. PATIENT STATES NAUSEA BETTER. PATIENT STATES SHE THINKS MOVEMENT CAUSES HER TO BECOME NAUSEAOUS. 1540: VS CHECKED. O2 SATS IN HIGH 90s. O2 REMOVED. PATIENT ON ROOM AIR. CALL LIGHT WITHIN REACH.
--- NOTE | 2023-08-01 16:01 | NUR ---
SPOT CHECK FOR O2 SAT IS 95-97% ON ROOM AIR. PATIENT RESTING. CALL LIGHT WITHIN REACH.
[2023-08-01 16:44] VITALS: BP 117/75
--- NOTE | 2023-08-01 16:46 | NUR ---
1640: CHECKED PATIENT. PATIENT RATES PAIN AT 4/10. STILL HAVING INTERMITTENT NAUSEA. VS CHECKED. DR. ALVAREZ UPDATED ON PATIENT STATUS. ORDER RECEIVED FOR IV DROPERIDOL. CALL LIGHT WITHIN REACH.
--- NOTE | 2023-08-01 17:14 | NUR ---
1710 PT REPORTING NAUSEA. PT REPORTS 4/10 PAIN WHEN LAYING STILL AND 10/10 PAIN WHEN MOVING. ANTI NAUSEA MEDICATION GIVEN VIA IV.
[2023-08-01 17:48] VITALS: BP 135/87
--- NOTE | 2023-08-01 17:48 | NUR ---
1740 PT TRANSFERRED TO [facility] ROOM [facility]113. REPORT GIVEN TO MED SURGER DRY GOODS CLERK BY STEWART Verdugo RN AND MAGALIE Guaman RN. LAP SITES VISUALIZED BY THIS NURSE AND [facility] SURGE DRY GOODS CLERK. INFORMED RN TO DISCUSS WITH DR ALVAREZ BEFORE PATIENT DISCHARGE. PT TRANSFERED TO [facility] WITH DRAW SHEET, CALL LIGHT WITHIN REACH, BED LOW AND LOCKED. NO OTHER QUESTIONS AT THIS TIME BY NURSE AND PATIENT. ALL BELONGINGS IN POSSEIONS WITH PATIENT.
--- NOTE | 2023-08-01 17:50 | NUR ---
PATIENT ARRIVED TO MED SURG. X5 LAP SITES INTACT WITH STERI STRIPS, SCANT SEROUS DRAINAGE. PATIENT IS HAVING ICE CHIPS, REPORTS BEING NAUSEATED, EMESIS PRIOR TO ARRIVAL. PATIENT RATES ABD PAIN 5/10. IS IN ROOM WITH PATIENT. PATIENT HAS SALTINE CRACKERS AT BEDSIDE.
--- NOTE | 2023-08-01 18:55 | NUR ---
PATIENT UP TO BATHROOM TO VOID 400ML. PATIENT HAS TOLERATED WATER AND CRACKERS. PATIENT HAS INTERMITTANT NAUSEA, PLANS TO RESUME HOME NAUSEA MEDICATIONS AT DISCHARGE. X2 PERCOCET AT BEDSIDE AND PATIENT WILL TAKE THOSE IN THE NEXT 15 MINUTES OR SO, WHEN SHE IS READY. CALL TO DR. ALVAREZ TO UPDATE HIM, OKAY TO DISCHARGE HOME WHEN PATIENT IS READY. DISCHARGE INSTRUCTIONS ARE PRINTED AND ON CHART.
[2023-08-01 19:32] VITALS: BP 133/71
--- NOTE | 2023-08-01 19:41 | NUR ---
REPORT RECEIVED FROM DAY RN. PATIENT C/O NAUSEA WITH VOMITTING NOTED. MD OZIEL NOTIFIED. NEW TELEPHONE ORDERS FOR COMPAZINE 10MG IV ONCE VERIFIED VIA VERBAL READBACK.
[2023-08-01] MEDS ORDERED: PROCHLORPERAZINE EDISYLATE 10 MG/2 ML VIAL IV ONE (19:45)
--- NOTE | 2023-08-01 20:14 | NUR ---
Patient given prn for nausea. Reports improvement. No further vomiting at this time. Reports pain is tollerable 06/10. Went over discharge instructions with patient and . Education provided to and patient. IV site was discontinued. Patient escorted out via wheelchair with driving.
--- NOTE | 2023-08-02 12:22 | OR ---
[facility] [address] [place], [place] [address] Signed DATE OF OPERATION: 08/01/2023 SURGEON: July Alvarez MD PREOPERATIVE DIAGNOSES: 1. Chronic calculous cholecystitis. 2. Possible pelvic endometriosis. POSTOPERATIVE DIAGNOSES: 1. Chronic calculous cholecystitis with intra-abdominal omental adhesions. 2. No evidence of endometriosis. PROCEDURES: 1. Laparoscopy with lysis of adhesions. Inspection of pelvic organs. 2. Laparoscopic cholecystectomy with intraoperative cholangiogram. 3. Surgeon-directed fluoroscopy. ANESTHESIA: General endotracheal, Evelyne Sandy, APPLICATION ADMINISTRATOR and local 10 mL of 0.25% Marcaine with epinephrine. INDICATION: This 37-year-old white woman is a patient of Tayler Pollard. The patient has had chronic abdominal pain highly suggestive of biliary colic and a gallbladder ultrasound was performed in [place], [place] confirming at least one large gallstone. Additionally, she has other issues including chronic pain issues. She does take Vicodin 2 tabs daily under a pain management plan. She has additionally been evaluated by Dr. SILVIA Cash, her raw stock machine feeder with concerns regarding dysmenorrhea and dyspareunia. She was considered possible to have endometriosis. Notably, the patient has undergone diagnostic laparoscopy and possible excision of endometriosis as well as tubal ligation. This was performed by a raw stock machine feeder elsewhere. The patient is to undergo not only laparoscopic cholecystectomy but laparoscopic evaluation as evaluated by Dr. SILVIA Cash to assess for possible endometriosis or other abnormality. The patient understands the risk of operation including but not limited to bleeding, infection, bile duct injury, need for open surgery, need for other indicated procedures particularly if endometriosis should be identified. If that were the case, Dr. Cash would be doing ablation therapy. FINDINGS: Electronically Signed By: JULY ALVAREZ MD 08/02/23 1222 PATIENT NAME: NACHO PLATA OPERATIVE REPORT DATE OF : 81 REPORT #: [id number] PHYSICIAN: JULY ALVAREZ MD PCP: TAYLER POLLARD PA-C REPORT IS CONFIDENTIAL AND NOT TO BE RELEASED WITHOUT AUTHORIZATION [facility] [address] [place], [place] [address] Signed There were intra-abdominal adhesions of omentum to the anterior abdominal wall, which required lysis of adhesions. The gallbladder itself was chronically inflamed and liver was relatively normal. Pelvic inspection showed both tubes and ovaries to be without evidence of endometriosis and the cul-de-sac certainly had no sign of endometriosis. There were clips from prior tubal ligation at least one in the pelvis free-floating but the divided ends of both tubes were identified and in complete discontinuity. The gallbladder itself was chronically inflamed and had adherent small gallstone material. Cholangiogram showed no sign of filling defect or biliary ductal dilatation. Antegrade flow through the common bile duct was so profound that retrograde filling was never really seen despite efforts at administration of opiates (morphine) and a fair amount of time to allow for effect on the ampulla. I do postulate that perhaps the ampulla is "tolerant" of opiates given her daily use of Vicodin. The gallbladder itself had small adherent gallstone type debris to it. There were no other findings of note. PROCEDURE IN DETAIL: The patient was brought to the operating room, given a general endotracheal anesthetic. Preoperative antibiotic Ancef was given. Sequential compression device stockings were used. A Mcdonnell catheter was not placed. The abdomen was prepared with a chlorhexidine solution and draped sterilely. An infraumbilical incision was made and using an open Eli cannula technique pneumoperitoneum was achieved to a level of 14 mmHg of carbon dioxide gas. Intra-abdominal inspection showed no sign of ascites or carcinomatosis. There were omental adhesions to the anterior abdominal wall superiorly. Three additional trocars were placed in usual configuration in the subxiphoid, right midclavicular, and right anterior axillary line. Using sharp dissection, the omental adhesions were taken down. A reorientation of the camera with the camera placed in the epigastric port was undertaken and with single hand manipulation, the lower abdominal viscera were examined. The patient was placed in steep Trendelenburg position showing small bowel loops to be normal and the colon, particularly sigmoid floppy and easily manipulated and without signs of endometriosis. A left lower quadrant 5 mm port was placed and two-hand manipulation allowed for identification of the pelvic organs including the uterus, both tubes and both ovaries. All the organs were normal, although the tubes were in discontinuity related to prior tubal ligation. A free clip was noted in the pelvis. Dr. Cash inspected all of these areas in detail, confirming no evidence of endometriosis or other abnormality requiring intervention at this time. Plans were then made for returning to cholecystectomy. Laparoscope was placed back in the umbilical area and under direct visualization using electrocautery, the omental Electronically Signed By: JULY ALVAREZ MD 08/02/23 1222 PATIENT NAME: NACHO PLATA OPERATIVE REPORT DATE OF : 81 REPORT #: [id number] PHYSICIAN: JULY ALVAREZ MD PCP: TAYLER POLLARD PA-C REPORT IS CONFIDENTIAL AND NOT TO BE RELEASED WITHOUT AUTHORIZATION [facility] [address] [place], [place] [address] Signed adhesions were taken down of the upper abdomen. This exposed the gallbladder well, which was chronically inflamed. The gallbladder was grasped and elevated cephalad and retracted laterally and using blunt and electrocautery dissection the triangle of Calot was dissected free. A clip was applied across gallbladder cystic duct junction and a transverse choledochotomy was made in the cystic duct. Using an Rucker type cholangiocatheter intraoperative cholangiography was undertaken. Antegrade flow through the cystic duct and common bile duct was notable and easily passed into the duodenum. Despite added fluids, the ampulla would not allow for retrograde flow into the common hepatic duct. On that basis, morphine was administered and 5 minutes or so allowed to elapse but repeat efforts at cholangiography still showed profound antegrade flow through the ampulla. Additional morphine was given an additional time but ultimately it became clear that the profound antegrade flow through the common bile duct into the duodenum would not allow for retrograde filling. It is postulated that perhaps her ongoing use of opiates has blunted the ampullary spastic effect of opiate administration. There was no evidence of pathologic occlusion to the common hepatic duct certainly. The catheter was removed and the cystic duct was triply clipped and divided. The gallbladder was dissected free in a retrograde fashion using electrocautery. Gallbladder was placed in an endobag and extracted through the infraumbilical port without problem, opening on the back table and found to have adherent gallbladder stone debris to the gallbladder wall. There was no evidence of malignancy or other abnormality. Reinspection of subhepatic space showed the area to be reasonably hemostatic. Hemostasis was additionally assured with electrocautery. Some Carlos Enrique hemostatic agent was placed in the subhepatic space. The omentum was replaced to that side as well. Excess irrigation fluid was suctioned free. The trocars were removed under direct visualization showing no sign of bleeding. The infraumbilical fascial incision was reapproximated with interrupted 0 Vicryl suture. A 10 mL of 0.25% Marcaine with epinephrine was injected locally and skin closed with interrupted 3-0 Vicryl. Steri-Strips were applied. The patient was ultimately extubated, transferred to the recovery room in good condition having suffered no complications. Sponge, needle, and instrument counts were reported as correct x3. July Alvarez MD JM/MODL Electronically Signed By: JULY ALVAREZ MD 08/02/23 1222 PATIENT NAME: NACHO PLATA OPERATIVE REPORT DATE OF : 81 REPORT #: [id number] PHYSICIAN: JULY ALVAREZ MD PCP: TAYLER POLLARD PA-C REPORT IS CONFIDENTIAL AND NOT TO BE RELEASED WITHOUT AUTHORIZATION [address] [address] Signed /[id number] cc: DO Tayler Hanson PA-C Copies: AFTAB CASH (SILVIA) TAYLER SALAMANCA PA-C ~ Electronically Signed By: JULY ALVAREZ MD 08/02/23 1222 PATIENT NAME: NACHO PLATA OPERATIVE REPORT DATE OF : 81 REPORT #: [id number] PHYSICIAN: JULY ALVAREZ MD PCP: TAYLER POLLARD PA-C REPORT IS CONFIDENTIAL AND NOT TO BE RELEASED WITHOUT AUTHORIZATION
--- NOTE | 2023-08-08 15:31 | PATH ---
[facility] [address] [facility] [place], [place] [address] Signed SPECIMEN(S): A GALLBLADDER AND GALLSTONES SPECIMEN SOURCE: A. GALLBLADDER AND GALLSTONES CLINICAL HISTORY: Cholecystitis and cholelithiasis, possible endometriosis. FINAL PATHOLOGIC DIAGNOSIS: Gallbladder and gallstones: - Chronic cholecystitis with mucosal cholesterolosis. - Negative for calculi. JVR:keily MICROSCOPIC EXAMINATION: Histologic sections of all submitted blocks are examined by light microscopy. These findings, together with the gross examination, support the pathologic diagnosis. GROSS DESCRIPTION: The specimen, labeled and designated "August Plata, " and designated on the requisition "gallbladder and stones," is received in formalin and consists of Specimen: Previously opened gallbladder. Dimensions: 6.8 x 4.8 x 0.7 cm. Serosa: Yellow-green and smooth. Cystic Duct: Inked, unobstructed. Calculi: Not grossly identified. Mucosa: Green and velvety with yellow flecking and polypoid soft tissue fragments that measure up to 0.4 cm in greatest dimension. Wall thickness: 0.2-0.4 cm. Lymph node: No pericystic lymph nodes are grossly identified. Additional: None. Dye Box Operator sections are submitted in (A1). FB (under the direct supervision of a pathologist) The Gross Description was prepared using a voice recognition system. The report was reviewed for accuracy; however, sound-alike word errors, addition and/or deletions may occur. If there is any question about this report, please contact Client Services. PERFORMING LABORATORY: Technical component was performed by Wrapp, Joey Loera, PATIENT NAME: NACHO PLATA PATHOLOGY DATE OF : 81 REPORT #: [id number] PHYSICIAN: IFEOMA STEWART PCP: ROSELIA ALMANZAR PA-C REPORT IS CONFIDENTIAL AND NOT TO BE RELEASED WITHOUT AUTHORIZATION [facility] [address] [place], [place] [address] [place] [address] (CLIA# [id number]). Professional interpretation was performed by [employer] [place], [facility], [address] [place] [id number] (CLIA#: [id number]) Diagnostician: Ru Arredondo MD Pathologist Electronically Signed 08/08/2023 Copies: ~ PATIENT NAME: NACHO PLATA PATHOLOGY DATE OF : [birth year] REPORT #: [id number] PHYSICIAN: IFEOMA STEWART PCP: ROSELIA ALMANZAR PA-C REPORT IS CONFIDENTIAL AND NOT TO BE RELEASED WITHOUT AUTHORIZATION
== END 2023-08-01 20:18 | disposition home or self-care (01) ==
LOC: DS 08:53 → MS 17:26 → DS 20:18
PROVIDERS: ATTEND Surgery
PROC: BF13YZZ Fluoroscopy of Gallbladder and Bile Ducts using Other Contrast (ICD-10-PCS; 2023-08-01)
PROC: 0FT44ZZ Resection of Gallbladder, Percutaneous Endoscopic Approach (ICD-10-PCS; principal; 2023-08-01 11:15)
DX: K80.10 Calculus of gallbladder with chronic cholecystitis without obstruction (principal); K66.0 Peritoneal adhesions (postprocedural) (postinfection); R19.7 Diarrhea, unspecified; J45.909 Unspecified asthma, uncomplicated; I10 Essential (primary) hypertension; Z79.899 Other long term (current) drug therapy; Z98.890 Other specified postprocedural states; Z98.51 Tubal ligation status; Z88.6 Allergy status to analgesic agent; Z88.8 Allergy status to other drugs, medicaments and biological substances
CPT/HCPCS: 00790; 36415; 74300; 80053; 84703; 85025; 88304; A9270; J0131; J0690; J0780; J1100; J1170; J1644; J1790; J2250; J2274; J2704; J3010; J3475; J3490; J7121; Q9967